=== PATIENT | male | born 1950 | race Caucasian/White ===

== ENCOUNTER → 2019-04-27 | Outpatient (CLI) | payer BC, MEDICARE | END | disposition home or self-care (01) | LOC: RAH 14:02 | PROVIDERS: ATTEND Physician Assistant Medical | DX: M54.5 Low back pain (principal); M25.551 Pain in right hip; M25.552 Pain in left hip | CPT/HCPCS: 72100; 73521 ==

== ENCOUNTER 2022-06-09 23:14 | Observation (INO) | payer MEDICARE ==
[~2022-06-09] VITALS: Ht 167.6 cm; Wt 81.6 kg
[2022-06-09 23:40] LABS: BASOPHILS % (AUTO) 0.7 % (0.0-5.0); EOSINOPHILS % (AUTO) 2.5 % (0.0-8.0); LYMPHOCYTES % (AUTO) 35.8 % (21.0-51.0); MEAN CORPUSCULAR HEMOGLOBIN 28.9 pg (27.0-33.0); MEAN CORPUSCULAR VOLUME 85.1 fL (79-99); MONOCYTES % (AUTO) 8.7 % (3.0-13.0); NEUTROPHILS % (AUTO) 51.9 % (40.0-77.0); PLATELET COUNT (AUTO) 244 K/uL (130-400); RED BLOOD CELL COUNT(AUTO) 5.05 MIL/uL (4.50-6.20); RED CELL DISTRIBUTION WIDTH 13.6 % (11.0-15.5); WHITE BLOOD COUNT (AUTO) 11.4 K/uL (4.8-10.8)
[2022-06-09 23:49] LABS: CREATININE 0.8 mg/dL (0.5-1.5); POTASSIUM 3.2 mmol/L (3.5-5.1)
[2022-06-09 23:53] LABS: INR 1.03 (0.85-1.15); PROTHROMBIN TIME 11.2 SEC (9.6-11.6)
[2022-06-09 23:56] LABS: TOTAL PROTEIN, SERUM 7.5 g/dL (6.0-8.3)
[2022-06-10] MEDS ORDERED: LIDOCAINE HCL 2% VISCOUS 15 ML UDCUP PO ONE
[2022-06-10] MEDS ORDERED: MAG/ALUM/SIMETH 30 ML UDCUP PO ONE
[2022-06-10] MEDS ORDERED: ONDANSETRON 4MG INJ IVP ONE
[2022-06-10] MEDS ORDERED: ASPIRIN 81MG CHEW TAB PO ONE
[2022-06-10] MEDS ORDERED: LACTATED RINGERS 1000ML 1,000 ML IV ONE
[2022-06-10 00:23] LABS: B-TYPE NATRIURETIC PEPTIDE 12 pg/mL (0-100)
[2022-06-10] MEDS ORDERED: ACETAMINOPHEN 325 MG TAB PO PRN ×2 (03:30)
[2022-06-10] MEDS ORDERED: DiphenhydrAMINE HCL 50 MG/ML VIAL IV PRN (03:30)
[2022-06-10] MEDS ORDERED: ACETAMINOPHEN WITH CODEINE 1 TAB TAB PO PRN (03:30)
[2022-06-10] MEDS ORDERED: ONDANSETRON 4MG INJ IV PRN (03:30)
[2022-06-10] MEDS ORDERED: MORPHINE 4 MG SYG IV PRN (03:30)
[2022-06-10] MEDS ORDERED: LACTULOSE 20 GM/30 ML UDCUP PO PRN (03:30)
[2022-06-10] MEDS ORDERED: NITROGLYCERIN 0.4 MG SL TAB SL PRN (03:30)
[2022-06-10] MEDS ORDERED: MAG/ALUM/SIMETH 30 ML UDCUP PO PRN (03:30)
[2022-06-10] MEDS ORDERED: ASPIRIN 325MG TAB PO ONE (03:30)
[2022-06-10] MEDS ORDERED: GUAIFENESIN-DM 200/20 MG 10 ML PO PRN (03:30)
[2022-06-10] MEDS ORDERED: POTASSIUM BICARB/CIT AC 25 MEQ TABLET.EFF PO ONE (03:30)
[2022-06-10 04:36] LABS: CHOLESTEROL 102 mg/dL (<200); HDL CHOLESTEROL 44 mg/dL (29-71); LDL DIRECT 45 mg/dL (0-99); LIPASE 76 U/L (114-286); TRIGLYCERIDES 144 mg/dL (30-200)
[2022-06-10] MEDS: 0.9%NACL 1000ML 1,000 ML IV SCH ×2 (05:31→13:30)
[2022-06-10] MEDS: HEPARIN 5,000 UNIT VIAL SQ SCH ×3 (08:40→20:47)
[2022-06-10] MEDS: METOPROLOL TARTRATE 25 MG TAB PO SCH ×2 (08:40→20:47)
[2022-06-10] MEDS ORDERED: FAMOTIDINE 20MG VIAL IV SCH (09:00)
[2022-06-10] MEDS: PANTOPRAZOLE 40 MG/VIAL IVP SCH (09:49)
[2022-06-10] MEDS ORDERED: REGADENOSON 0.4 MG/5 ML PF SYG IVP SCH (14:00)
[2022-06-10 15:15] VITALS: BP 151/85
[2022-06-10] MEDS ORDERED: MONT-39 PO (15:46)
[2022-06-10] MEDS ORDERED: NIFE90TA65 PO (15:46)
[2022-06-10] MEDS ORDERED: ATOR10 PO (15:46)
[2022-06-10] MEDS ORDERED: CYAN-52 PO (15:46)
[2022-06-10] MEDS ORDERED: METF-446 PO (15:46)
[2022-06-10] MEDS ORDERED: TAMS-1 PO (15:46)
[2022-06-10] MEDS ORDERED: HYDR25TA PO (15:46)
[2022-06-10] MEDS ORDERED: ASPI-1197 PO (15:46)
[2022-06-10] MEDS ORDERED: METO25TA6 PO (15:46)
[2022-06-10] MEDS ORDERED: GLIP10TA19 PO (15:46)
[2022-06-10] MEDS ORDERED: CLOP75TA32 PO (15:46)
[2022-06-10] MEDS ORDERED: LOSA25TA41 PO (15:46)
[2022-06-10 20:00] VITALS: BP 146/86
[2022-06-10 23:42] VITALS: BP 155/91
[2022-06-11] MEDS: 0.9%NACL 1000ML 1,000 ML IV SCH (03:02)
[2022-06-11 03:31] LABS: CREATININE 0.8 mg/dL (0.5-1.5); POTASSIUM 3.6 mmol/L (3.5-5.1)
[2022-06-11 03:56] VITALS: BP 155/88
[2022-06-11 07:00] VITALS: BP 185/95
[2022-06-11] MEDS ORDERED: ASPIRIN 81 MG EC TAB PO SCH (09:00)
[2022-06-11] MEDS ORDERED: HYDROCHLOROTHIAZIDE 25 MG TABLET PO SCH (09:00)
[2022-06-11] MEDS: METOPROLOL TARTRATE 25 MG TAB PO SCH (09:21)
[2022-06-11] MEDS: PANTOPRAZOLE 40 MG/VIAL IVP SCH (09:21)
[2022-06-11] MEDS: HEPARIN 5,000 UNIT VIAL SQ SCH ×2 (09:28→14:00)
[2022-06-11] MEDS ORDERED: NIFEDIPINE ER 30 MG TAB PO SCH (09:30)
[2022-06-11 11:00] VITALS: BP 189/108
[2022-06-11 13:02] VITALS: BP 180/119
[2022-06-11] MEDS ORDERED: LOSARTAN 25 MG TABLET PO SCH (21:00)
== END 2022-06-11 16:10 | disposition home or self-care (01) ==
LOC: EDH 23:14 → EDHIP 06-10 03:27 → INTOOBSV 06-10 03:27 → 2AH 06-10 15:15
PROVIDERS: ADMIT Family Medicine; ATTEND Family Medicine
DX: R07.89 Other chest pain (principal); I10 Essential (primary) hypertension; E87.6 Hypokalemia; I25.110 Atherosclerotic heart disease of native coronary artery with unstable angina pectoris; E66.9 Obesity, unspecified; I48.91 Unspecified atrial fibrillation; E78.5 Hyperlipidemia, unspecified; E11.9 Type 2 diabetes mellitus without complications; I24.9 Acute ischemic heart disease, unspecified; K21.9 Gastro-esophageal reflux disease without esophagitis; I25.2 Old myocardial infarction; K29.70 Gastritis, unspecified, without bleeding; E78.00 Pure hypercholesterolemia, unspecified; F19.90 Other psychoactive substance use, unspecified, uncomplicated; Z87.891 Personal history of nicotine dependence; Z95.5 Presence of coronary angioplasty implant and graft; Z79.899 Other long term (current) drug therapy; Z98.890 Other specified postprocedural states; Z68.29 Body mass index [BMI] 29.0-29.9, adult
CPT/HCPCS: 99285; 84484 ×3; 80053; 83880; 85025; 85610; 36415 ×3; 71045; 93005 ×3; 96372 ×2; 96361 ×3; 96375; 80061; 83690; 93017; 78452; 96374; 96376; 80048; G0378 ×33; J7120; J3490; J7030 ×3; J2405; J1644 ×3; C9113 ×2; J2785; A9500 ×2

== ENCOUNTER → 2024-07-15 | Outpatient (CLI) | payer MEDICARE ==
[~2024-07-15] MED LIST: ASPI-1197 PO; ATOR10 PO; CLOP75TA32 PO; CYAN-52 PO; GLIP10TA19 PO; HYDR25TA PO; LOSA25TA41 PO; METF-446 PO; METO25TA6 PO; MONT-39 PO; NIFE90TA65 PO; TAMS-1 PO
--- NOTE | 2024-07-15 14:37 | HMCIMG ---
CT CHEST W/O CONTRAST HISTORY: COPD COMPARISON: 07/15/2012 TECHNIQUE: Multiple sequential axial images of the chest were obtained from the thoracic inlet through upper abdomen. Patient was not given contrast through intravenous route. FINDINGS: There is no evidence of pulmonary nodule or parenchymal disease. No pleural effusion or pericardial effusion is seen. There is no evidence of pneumothorax. There are normal size mediastinal and hilar lymph nodes. The heart is not enlarged. Degenerative changes of the thoracolumbar spine are present. There is no evidence of adrenal nodule. The liver is enlarged with fatty changes. Postcholecystectomy changes are seen. IMPRESSION: 1. No evidence of pulmonary nodule or effusion is seen. CT was performed with one or more following dose reduction techniques: automated exposure control, adjustment of the mA and kv according to patient's size, or use of a iterative reconstruction technique.
== END | disposition home or self-care (01) ==
LOC: RAH 13:08
PROVIDERS: ATTEND Family Medicine
DX: J44.9 Chronic obstructive pulmonary disease, unspecified (principal); M47.815 Spondylosis without myelopathy or radiculopathy, thoracolumbar region; Z90.49 Acquired absence of other specified parts of digestive tract
CPT/HCPCS: 71250